=== PATIENT | male | born 1980 | race African-American/Black ===

== ENCOUNTER 2019-12-14 10:35 | Emergency (ER) | payer SELFPAY ==
[~2019-12-14] VITALS: Ht 180.3 cm; Wt 90.7 kg
[2019-12-14] MEDS ORDERED: LIDOCAINE HCL 2% 20 ML VIAL ONE (11:08)
[2019-12-14] MEDS ORDERED: KETOROLAC TROMETHAMINE 30 MG INJ IM ONE (11:15)
[2019-12-14] MEDS ORDERED: CEFAZOLIN 1 G VIAL IM ONE (11:15)
[2019-12-14] MEDS ORDERED: KETOROLAC TROMETHAMINE 30 MG INJ ONE (11:22)
[2019-12-14] MEDS ORDERED: CEFAZOLIN 1 G VIAL ONE (11:23)
--- NOTE | 2019-12-14 11:38 | NUR ---
No adverse rxn to IM meds. Patient discharged to home in stable condition & brisk steady gait. Written and verbal after care instructions given to patient. Patient verbalized understanding & compliance of instructions. Stressed follow up with a dentist or return to ER for worsening s/s.
== END 2019-12-14 11:43 | disposition home or self-care (01) ==
LOC: ER 10:35
DX: K08.89 Other specified disorders of teeth and supporting structures (principal); K04.7 Periapical abscess without sinus; F17.210 Nicotine dependence, cigarettes, uncomplicated
CPT/HCPCS: 41800; 76536; 96372 ×2; 99284; 99406; J0690; J1885; J3490; A4663